=== PATIENT | female | born 1950 | race Caucasian/White ===

== ENCOUNTER 2020-07-31 10:03 | Inpatient (IN) ==
[2020-07-31] MEDS ORDERED: IOPAMIDOL 100 ML BOTTLE IV ONE (10:04)
[2020-07-31] MEDS ORDERED: morphine 2 MG/ML VIAL IV ONE ×4 (10:14→13:23)
[2020-07-31] MEDS ORDERED: ONDANSETRON 4 MG/2 ML VIAL IV ONE (10:14)
[2020-07-31 10:41] LABS: POC Blood Urea Nitrogen 13 mg/dL (6-20); POC CO2 22 mmol/L (22-30); POC Calcium, Ionized 1.16 mmEq/L (1.16-1.32); POC Chloride 106 mEq/L (96-108); POC Creatinine 0.6 mg/dL (0.6-1.2); POC Glucose, Random 128 mg/dL (70-105); POC Hematocrit 45 % (36-48); POC Potassium 3.9 mEql/L (3.3-5.1); POC Sodium 138 mEq/L (133-145)
[2020-07-31] MEDS ORDERED: KETOROLAC 30 MG/ML VIAL IV ONE (10:48)
[2020-07-31 11:03] LABS: Basophils # (Auto) 0.03 K/mcL (0.00-0.20); Basophils % (Auto) 0.2 % (0.0-2.0); Eosinophils # (Auto) 0.01 K/mcL (0.00-0.70); Eosinophils % (Auto) 0.1 % (0.0-7.0); Hemoglobin 14.9 g/dL (12.0-15.0); Lymphocytes # (Auto) 1.09 K/mcL (1.50-4.80); Mean Cell Volume 95.4 fL (80.0-100.0); Mean Corpuscular HGB Conc 33.9 g/dL (31.0-36.0); Mean Platelet Volume 8.4 fL (7.4-10.4); Monocytes # (Auto) 1.35 K/mcL (0.10-0.90); Monocytes % (Auto) 8.6 % (1.0-12.0); Neutrophils % (Auto) 84.1 % (38.0-78.0); Platelet Count 269 K/mcL (140-440); RBC 4.61 M/mcL (4.00-5.20); Red Cell Distribution Width 13.5 % (11.5-14.5); WBC 15.7 K/mcL (4.5-11.0)
[2020-07-31 11:28] LABS: ALT/SGPT 6 U/L (<40); AST/SGOT 8 U/L (<32); Albumin 3.7 gm/dL (3.2-5.2); Albumin/Globulin Ratio 1.2 (1.0-2.3); Alkaline Phosphatase 86 U/L (39-117); Bilirubin,Total 0.6 mg/dL (0.1-1.0); Blood Urea Nitrogen 12 mg/dL (8-23); Calcium 9.2 mg/dL (8.6-10.4); Carbon Dioxide 22 mmol/L (22-30); Chloride 103 mmol/L (96-108); Globulin 3.1 gm/dL (2.2-3.7); Glomerular Filtration Rate 88; Glucose 126 mg/dL (70-105)
--- NOTE | 2020-07-31 11:49 | Emergency Department Note ---
SOB HPI General Chief Complaint: Shortness of Breath/Dyspnea Stated Complaint: right upper back pain, hemoptasis Time Seen by Provider: 07/31/20 10:13 Source: patient and EMS Mode of arrival: EMS Limitations: no limitations History of Present Illness HPI Narrative: Narrative: 69-year-old female presents with cough, right-sided chest pain, right-sided flank pain, and shortness of breath. Onset on , about 3 days ago. She woke up with it and is progressively gotten worse. States she is waited all this time because she is had pleurisy in the past and at first she thought it was just that. States it is even extremely tender to touch. Her pain is 10 out of 10 and she cannot get comfortable. Is now di aphoretic. Started coughing up blood this morning. Is bright red in phlegm. Has never had hemoptysis previously. Denies fever or chills. Other than a cough no other cold symptoms. No ill contacts. No nasal congestion or ear pain. No sore throat. No nausea, vomiting, or diarrhea. No abdominal pain. No dysuria or frequency. She arrives via [facility] ambulance Related Data Home Medications Medication Instructions Recorded Confirmed No Known Home Meds 07/31/20 07/31/20 Allergies Allergy/AdvReac Type Severity Reaction Status Date / Time hydrocodone Allergy Unknown Unknown Verified 07/31/20 10:08 hydromorphone [From Dilaudid] Allergy Unknown Nausea Verified 07/31/20 10:08 tramadol Allergy Unknown Sweating, Verified 07/31/20 10:08 Vomiting, Headache atorvastatin AdvReac Unknown Gas/Diarrhe Verified 07/31/20 10:08 a Review of Systems ROS ROS Narrative: Narrative: All systems ED: reviewed and negative except as stated. [facility] Narrative Patient History Narrative: Narrative: Medical/Surgical/Family History All Active Problems Bilateral pulmonary embolism (Acute) Pneumonia (Acute) Maxillary sinusitis (Acute) Shoulder pain, left (Chronic) Spasm of esophagus (Chronic) Migraines (Chronic) Kidney stones (Chronic) Gallbladder problem (Chronic) History of appendectomy (Chronic) History of cholecystectomy (Chronic) History of kidney stones (Chronic) History of hysterectomy (Chronic) Medical History Gallbladder problem (Chronic) Gallbladder removed Kidney stones (Chronic) Surgery - 1 got "stuck" Migraines (Chronic) Occasionally - 3 or 4 times/year Shoulder pain, left (Chronic) January, Spasm of esophagus (Chronic) 2012 Surgical History History of appendectomy (Chronic) 2010 History of cholecystectomy (Chronic) 2010 History of colonoscopy (Acute 10/07/15) History of hysterectomy (Chronic) fibroid tumors 2003 History of kidney stones (Chronic) 2009 Family History Unknown No pertinent family history Social History Smoking Status: Current every day smoker Alcohol Intake Frequency: a few times a week Substance Use: does not use Exam Narrative Narrative: Narrative: General Limitations: no limitations General appearance: Present alert Head Head: Present atraumatic and normocephalic Eye Eye: Present normal appearance; Absent conjunctival injection ENT ENT: Present normal exam, normal oropharynx, mucous membranes moist, TM's normal bilaterally and normal external ear exam Neck Neck: Present normal inspection and trachea midline; Absent lymphadenopathy Chest Chest: Present normal inspection and other (tender t/o mid right chest wall to even light palpation. no rash or lesions); Absent symmetric chest wall rise and tenderness Respiratory Respiratory: Present normal lung sounds bilaterally and decreased breath sounds (mildy bases bilat); Absent respiratory distress, rales/crackles, wheezes, stridor and accessory muscle use Cardiovascular Cardiovascular: Present regular rate; Absent normal heart sounds Adbominal Abdominal: Present soft; Absent distention, tenderness, guarding, rebound and rigidity Back Back: Present CVA tenderness (R); Absent CVA tenderness (L) Neurological Neurological: Present alert and oriented X3 Psychiatric Psychiatric: Present normal affect and normal mood Skin Skin: Present warm (WNL), dry, intact and normal color; Absent rash Course Vital Signs Vital signs: Vital Signs Temperature 96.6 F L 07/31/20 10:05 Pulse Rate 81 07/31/20 10:05 Respiratory Rate 29 H 07/31/20 10:05 Blood Pressure 172/78 07/31/20 10:05 Pulse Oximetry (%) 95 07/31/20 10:05 Temperature 96.6 F L 07/31/20 10:05 Pulse Rate 74 07/31/20 13:13 Respiratory Rate 20 07/31/20 13:13 Blood Pressure 157/97 07/31/20 13:13 Pulse Oximetry (%) 94 07/31/20 13:13 MDM MDM Narrative Medical decision making narrative: Narrative: At 1300 I did speak to the hospitalist, Dr. Hitchcock. He suggested that we treat her outpatient and go ahead and treat her for pneumonia so I did order some azithromycin. We also started her on some Eliquis. However in the last half hour nursing staff just notified me that her sats are dropping to 88% on room air and she is continuing to cough up blood. She is still having 10 out of 10 pain and we are having a hard time getting her pain under control. At 1350 I did speak with hospitalist again who agrees to accept this patient. Lab Data Lab results reviewed: Yes I reviewed the patient's lab results. Result diagrams: 07/31/20 10:28 07/31/20 10:28 Labs: Lab Results 07/31/20 07/31/20 07/31/20 Range/Units 10:28 10:28 10:28 WBC 15.7 H (4.5-11.0) K/mcL RBC 4.61 (4.00-5.20) M/mcL Hgb 14.9 (12.0-15.0) g/dL Hct 44.0 (36.0-48.0) % POC Hct 45 (36-48) % MCV 95.4 (80.0-100.0) fL MCH 32.3 (26.0-34.0) pg MCHC 33.9 (31.0-36.0) g/dL RDW 13.5 (11.5-14.5) % Plt Count 269 (140-440) K/mcL MPV 8.4 (7.4-10.4) fL Neut % (Auto) 84.1 H (38.0-78.0) % Lymph % (Auto) 7.0 L (15.0-49.0) % [place] % (Auto) 8.6 (1.0-12.0) % Eos % (Auto) 0.1 (0.0-7.0) % Baso % (Auto) 0.2 (0.0-2.0) % Lymph # (Auto) 1.09 L (1.50-4.80) K/mcL [place] # (Auto) 1.35 H (0.10-0.90) K/mcL Eos # (Auto) 0.01 (0.00-0.70) K/mcL Baso # (Auto) 0.03 (0.00-0.20) K/mcL Absolute Neutrophils 13.18 H (1.80-8.00) K/mcL D-Dimer 2.06 H (0.27-0.50) ug/mL VBG Lactic Acid (0.5-2.0) mmol/L POC Sodium 138 (133-145) mEq/L Sodium 139 (133-145) mmol/L POC Potassium 3.9 (3.3-5.1) mEql/L Potassium 4.0 (3.3-5.1) mmol/L POC Chloride 106 (96-108) mEq/L Chloride 103 (96-108) mmol/L Carbon Dioxide 22 (22-30) mmol/L POC Total CO2 22 (22-30) mmol/L Anion Gap 14.0 (8.0-16.0) POC BUN 13 (6-20) mg/dL BUN 12 (8-23) mg/dL Creatinine 0.7 (0.6-1.1) mg/dL POC Creatinine 0.6 (0.6-1.2) mg/dL GFR Calculation 88 Glucose 126 H (70-105) mg/dL POC Glucose 128 H (70-105) mg/dL Calcium 9.2 (8.6-10.4) mg/dL POC WB Ioniz Calcium 1.16 (1.16-1.32) mmEq/L Total Bilirubin 0.6 (0.1-1.0) mg/dL AST 8 (<32) U/L ALT 6 (<40) U/L Alkaline Phosphatase 86 (39-117) U/L Troponin T (<0.03) ng/mL Total Protein 6.8 (5.9-8.4) gm/dL Albumin 3.7 (3.2-5.2) gm/dL Globulin 3.1 (2.2-3.7) gm/dL Albumin/Globulin Ratio 1.2 (1.0-2.3) 07/31/20 07/31/20 Range/Units 10:28 10:28 WBC (4.5-11.0) K/mcL RBC (4.00-5.20) M/mcL Hgb (12.0-15.0) g/dL Hct (36.0-48.0) % POC Hct (36-48) % MCV (80.0-100.0) fL MCH (26.0-34.0) pg MCHC (31.0-36.0) g/dL RDW (11.5-14.5) % Plt Count (140-440) K/mcL MPV (7.4-10.4) fL Neut % (Auto) (38.0-78.0) % Lymph % (Auto) (15.0-49.0) % [place] % (Auto) (1.0-12.0) % Eos % (Auto) (0.0-7.0) % Baso % (Auto) (0.0-2.0) % Lymph # (Auto) (1.50-4.80) K/mcL [place] # (Auto) (0.10-0.90) K/mcL Eos # (Auto) (0.00-0.70) K/mcL Baso # (Auto) (0.00-0.20) K/mcL Absolute Neutrophils (1.80-8.00) K/mcL D-Dimer (0.27-0.50) ug/mL VBG Lactic Acid 0.8 (0.5-2.0) mmol/L POC Sodium (133-145) mEq/L Sodium (133-145) mmol/L POC Potassium (3.3-5.1) mEql/L Potassium (3.3-5.1) mmol/L POC Chloride (96-108) mEq/L Chloride (96-108) mmol/L Carbon Dioxide (22-30) mmol/L POC Total CO2 (22-30) mmol/L Anion Gap (8.0-16.0) POC BUN (6-20) mg/dL BUN (8-23) mg/dL Creatinine (0.6-1.1) mg/dL POC Creatinine (0.6-1.2) mg/dL GFR Calculation Glucose (70-105) mg/dL POC Glucose (70-105) mg/dL Calcium (8.6-10.4) mg/dL POC WB Ioniz Calcium (1.16-1.32) mmEq/L Total Bilirubin (0.1-1.0) mg/dL AST (<32) U/L ALT (<40) U/L Alkaline Phosphatase (39-117) U/L Troponin T < 0.01 (<0.03) ng/mL Total Protein (5.9-8.4) gm/dL Albumin (3.2-5.2) gm/dL Globulin (2.2-3.7) gm/dL Albumin/Globulin Ratio (1.0-2.3) Radiology Data Radiology results reviewed: Yes I reviewed the patient's radiology results. Discharge Plan Patient/Caregiver Discharge Instructions Pt seen by [facility]/PA only: Yes Clinical Impression: Bilateral pulmonary embolism, Pneumonia Patient Disposition: Xfer As Outpt/Obs ([facility]) Condition: Serious Follow up with: Wayne Shah MD [Primary Care Provider] - Prescriptions: No Action No Known Home Meds RF: 0
[2020-07-31] MEDS ORDERED: AZITHROMYCIN 500 MG in DEXTROSE 5% IN WATER 250 ML IV ONE (13:23)
[2020-07-31] MEDS ORDERED: APIXABAN 5 MG TABLET PO ONE (13:23)
[2020-07-31 13:33] LABS: INR 0.9 (0.9-1.1); Prothrombin Time 13.1 sec (11.9-14.5)
--- NOTE | 2020-07-31 14:18 | Internal Med History&Physical ---
HPI History of Present Illness Patient information: Note initiated : 07/31/20 at 2:11 pm Service Date, if different from initiated Date: [] Patient: Ana Luisa San a 69 y/o F admitted on for right upper back pain, hemoptasis. Chief Complaint: [] History of present illness: Ms. San is a 69 year old F pResents the ED with chest pain on the right and shortness of breath. Patient states that she had significant pain right lower chest side and back/flank. Chest pain is worse with deep breath and coughing. She is had pleurisy in the past and thought was that. She thinks the symptoms started probably Saturday or Saturday but were severe enough to be really bothered her on . She felt like she had a cough but could not cough anything up. She denies fevers or chills. Her chest pain and shortness of breath continued to the point where it is so severe that she felt she needed to come into the ED. In the ED her oxygen saturation was originally fine on room air but eventually she started dipping down to 88 on room air. CTA of her chest showed bilateral PEs as well as a right lower lobe infiltrate. She denies any aspiration. She believes she had Covid infection a year ago in July before it was known. She works in [employer] and sits all day. She smokes a pack per day. She has started coughing up blood today. Review of Systems: Pertinent positives as above. Denies headache/fever/chills/nausea/vomiting/abd ominal pain/diarrhea. Remaining 10 point review of system reviewed negative PFSH PFSH All Active Problems Bilateral pulmonary embolism (Acute) Pneumonia (Acute) Maxillary sinusitis (Acute) Shoulder pain, left (Chronic) Spasm of esophagus (Chronic) Migraines (Chronic) Kidney stones (Chronic) Gallbladder problem (Chronic) History of appendectomy (Chronic) History of cholecystectomy (Chronic) History of kidney stones (Chronic) History of hysterectomy (Chronic) Medical History Gallbladder problem (Chronic) Gallbladder removed Kidney stones (Chronic) Surgery - 1 got "stuck" Migraines (Chronic) Occasionally - 3 or 4 times/year Shoulder pain, left (Chronic) January, Spasm of esophagus (Chronic) 2012 Surgical History History of appendectomy (Chronic) 2010 History of cholecystectomy (Chronic) 2010 History of colonoscopy (Acute 10/07/15) History of hysterectomy (Chronic) fibroid tumors 2003 History of kidney stones (Chronic) 2009 Family History Unknown No pertinent family history Social History (Updated 06/29/19 @ 09:15 by Octavio Hook PA-C) marital status: smoking status: Current every day smoker alcohol intake frequency: a few times a week substance use type: does not use MEDS/ALLERGIES Home Medications and Allergies Home Medications Medication Instructions Recorded Confirmed Type No Known Home Meds 07/31/20 07/31/20 History Allergies Allergy/AdvReac Type Severity Reaction Status Date / Time hydrocodone Allergy Unknown Unknown Verified 07/31/20 10:08 atorvastatin AdvReac Mild Gas/Diarrhe Verified 07/31/20 14:16 a hydromorphone [From Dilaudid] AdvReac Mild Nausea Verified 07/31/20 14:16 tramadol AdvReac Mild Sweating, Verified 07/31/20 14:16 Vomiting, Headache EXAM Constitutional Vitals: Temp Pulse Resp BP Pulse Ox 96.6 F L 73 18 152/79 95 07/31/20 10:05 07/31/20 14:03 07/31/20 14:03 07/31/20 14:03 07/31/20 14:03 Exam: General: Alert, Awake, No acute Distress Eyes/N/T: EOMI, PERRL, dry MM Head/Neck: neck supple, normocephalic atraumatic CV: RRR, No murmurs, normal s1/s2 Pulm: Rhonchi b/l bases, no wheezing Abd: soft, nontender, +BS x4 Ext: no clubbing/cyanosis/edema Neuro: Alert, no focal deficits, moves all extremities, CN 2-12 grossly intact, symmetrical strength b/l upper/lower, sensations intact b/l upper/lower Skin: warm/dry DATA Data Completed and Pending Labs: Labs from last 24 hours 07/31/20 07/31/20 07/31/20 13:22 10:28 10:28 WBC RBC Hgb Hct POC Hct MCV MCH MCHC RDW Plt Count MPV Neut % (Auto) Lymph % (Auto) [place] % (Auto) Eos % (Auto) Baso % (Auto) Lymph # (Auto) [place] # (Auto) Eos # (Auto) Baso # (Auto) Absolute Neutrophils PT 13.1 INR 0.9 D-Dimer VBG Lactic Acid POC Sodium Sodium POC Potassium Potassium POC Chloride Chloride Carbon Dioxide POC Total CO2 Anion Gap POC BUN BUN Creatinine POC Creatinine GFR Calculation Glucose POC Glucose Calcium POC WB Ioniz Calcium Total Bilirubin AST ALT Alkaline Phosphatase Troponin T Total Protein Albumin Globulin Albumin/Globulin Ratio Procalcitonin Pending Urine Color Pending Urine Appearance Pending Urine pH Pending Ur Specific [place] Pending Urine Protein Pending Urine Glucose (UA) Pending Urine Ketones Pending Urine Occult Blood Pending Urine Nitrate Pending Urine Bilirubin Pending Urine Urobilinogen Pending Ur Leukocyte Esterase Pending 07/31/20 07/31/20 07/31/20 10:28 10:28 10:28 WBC RBC Hgb Hct POC Hct 45 MCV MCH MCHC RDW Plt Count MPV Neut % (Auto) Lymph % (Auto) [place] % (Auto) Eos % (Auto) Baso % (Auto) Lymph # (Auto) [place] # (Auto) Eos # (Auto) Baso # (Auto) Absolute Neutrophils PT INR D-Dimer VBG Lactic Acid 0.8 POC Sodium 138 Sodium 139 POC Potassium 3.9 Potassium 4.0 POC Chloride 106 Chloride 103 Carbon Dioxide 22 POC Total CO2 22 Anion Gap 14.0 POC BUN 13 BUN 12 Creatinine 0.7 POC Creatinine 0.6 GFR Calculation 88 Glucose 126 H POC Glucose 128 H Calcium 9.2 POC WB Ioniz Calcium 1.16 Total Bilirubin 0.6 AST 8 ALT 6 Alkaline Phosphatase 86 Troponin T < 0.01 Total Protein 6.8 Albumin 3.7 Globulin 3.1 Albumin/Globulin Ratio 1.2 Procalcitonin Urine Color Urine Appearance Urine pH Ur Specific [place] Urine Protein Urine Glucose (UA) Urine Ketones Urine Occult Blood Urine Nitrate Urine Bilirubin Urine Urobilinogen Ur Leukocyte Esterase 07/31/20 07/31/20 10:28 10:28 WBC 15.7 H RBC 4.61 Hgb 14.9 Hct 44.0 POC Hct MCV 95.4 MCH 32.3 MCHC 33.9 RDW 13.5 Plt Count 269 MPV 8.4 Neut % (Auto) 84.1 H Lymph % (Auto) 7.0 L [place] % (Auto) 8.6 Eos % (Auto) 0.1 Baso % (Auto) 0.2 Lymph # (Auto) 1.09 L [place] # (Auto) 1.35 H Eos # (Auto) 0.01 Baso # (Auto) 0.03 Absolute Neutrophils 13.18 H PT INR D-Dimer 2.06 H VBG Lactic Acid POC Sodium Sodium POC Potassium Potassium POC Chloride Chloride Carbon Dioxide POC Total CO2 Anion Gap POC BUN BUN Creatinine POC Creatinine GFR Calculation Glucose POC Glucose Calcium POC WB Ioniz Calcium Total Bilirubin AST ALT Alkaline Phosphatase Troponin T Total Protein Albumin Globulin Albumin/Globulin Ratio Procalcitonin Urine Color Urine Appearance Urine pH Ur Specific [place] Urine Protein Urine Glucose (UA) Urine Ketones Urine Occult Blood Urine Nitrate Urine Bilirubin Urine Urobilinogen Ur Leukocyte Esterase A/P Narrative A/P Narrative: A: *PE b/l: No heart strain noted on CT imaging, vital signs stable -pleuritc chest pain and mild hemoptysis *PNA (RLL): *Acute hypoxic respiratory failure: P: -heparin gtt for 24hrs then to likely eliquis -Molly/any SC pending -O2 supp, wean as able -pulm toilet -ppx: heparin full code Time Spent With Patient Time: Total time spent is greater than 50% in coordination of care (as documented) at patient's floor/unit and/or counseling patient:
[2020-07-31 14:31] LABS: Appearance,Urine CLEAR (Clear); Bilirubin,Urine NEG (Negative); Color,Urine YELLOW; Culture Indicated,Urine No; Glucose,Urine (UA) NEG (Negative); Ketones,Urine NEG (Negative); Leukocyte Esterase,Urine NEG /ug (Negative); Nitrate,Urine NEG (Negative); Protein,Urine NEG (Negative); Specific Gravity,Urine 1.005 (1.000-1.035); Urine Blood NEG (Negative)
--- NOTE | 2020-07-31 14:45 | XRay Report ---
CLINICAL INFORMATION: dyspnea and right chest pain COMPARISON: 09/21/2015 FINDINGS: Heart size, mediastinum and pulmonary vessels are normal. Moderate mixed interstitial/alveolar infiltrate has developed in the right base with a small infiltrate in the left base. Mild diffuse interstitial fibrosis throughout both lungs was also seen on previous exam. IMPRESSION: Moderate vague right basilar infiltrate and small left basilar infiltrate. Consider infection or aspiration Mild diffuse interstitial fibrosis Interpreted and Authenticated by: Bandar Levine 07/31/20
[2020-07-31] MEDS ORDERED: ACETAMINOPHEN 325 MG TABLET PO PRN (14:52)
[2020-07-31] MEDS ORDERED: 0.9 % SODIUM CHLORIDE 1,000 ML IV SCH (14:52)
[2020-07-31] MEDS ORDERED: SENNOSIDES 1 TABLET PO PRN (14:52)
[2020-07-31] MEDS ORDERED: cefTRIAXone 2 GM in DEXTROSE 5% IN WATER 50 ML IV SCH (14:52)
[2020-07-31] MEDS ORDERED: AZITHROMYCIN 500 MG in DEXTROSE 5% IN WATER 250 ML IV SCH (14:52)
[2020-07-31] MEDS ORDERED: POTASSIUM CHLORIDE 20 MEQ TABLET PO PRN ×2 (14:52)
[2020-07-31] MEDS ORDERED: ONDANSETRON 4 MG/2 ML VIAL IV PRN (14:52)
[2020-07-31] MEDS ORDERED: POTASSIUM CHLORIDE 40 MEQ in DEXTROSE 5% IN WATER 500 ML IV PRN (14:52)
[2020-07-31] MEDS ORDERED: IPRATROPIUM/ALBUTEROL 3 ML AMPUL.NEB NEB PRN (14:52)
[2020-07-31] MEDS ORDERED: MAGNESIUM SULFATE 2 GM/50 ML BAG IV PRN (14:52)
[2020-07-31] MEDS ORDERED: KETOROLAC 15 MG/ML VIAL IV PRN (14:52)
--- NOTE | 2020-07-31 15:06 | Cat Scan Report ---
CLINICAL INFORMATION: Dyspnea COMPARISON: Chest CT: 06/19/2016 and 10/23/2018. TECHNIQUE: 80ml of Isovue-370 were injected intravenously. Using SmartPrep to maximize pulmonary artery opacification, .625mm helical slices were obtained from the lung apices through the lung bases. Following reconstruction, 2.5 mm sagittal, coronal, and axial reformations were processed. The exam was reviewed at mediastinal, lung, and bone windows. The exam was performed using radiation dose optimization techniques including, but not limited to, automated exposure control, adjustment of the mA and/or kV according to patient size and use of iterative reconstruction technique. FINDINGS: Pulmonary parenchymal windows show moderate groundglass/alveolar infiltrate in the posterior right lower lobe - new from the previous study. A small region of consolidated infiltrate is also developed in the peripheral posterior left lower lobe. Severe underlying centrilobular emphysema features chronic bronchitis with elevated lung volumes wall thickening/dilatation of bronchi with multiple bullae - predominantly in the upper lobes. In the right lung apex, 9.4 mm nodule has increased in size from 2019. That time it was 6 mm. It was not seen on the [address] CT. Mediastinal windows show a 14 mm lymph node in the right infrahilar region and greater than eight mildly enlarged lymph nodes the inferior mediastinum including the subcarinal,, precarinal and AP window which range up to 18 mm. Slight increase in size and number from previous CT. A small nonocclusive saddle embolus at the left lower lobe pulmonary artery bifurcation and occlusive emboli in the posterior and lateral basilar segmental right lower lobe pulmonary arteries are present. These may be chronic. The central pulmonary arteries are normal in caliber: the main pulmonary diameter 2.5 cm - no evidence of pulmonary hypertension. Thoracic aorta is normal diameter with diffuse intimal thickening. The heart is mildly enlarged with scattered fibrofatty calcific plaque in the coronary arteries. The esophagus is grossly normal. Thyroid is unremarkable. Bones and soft tissues the chest wall show no abnormality. Images through the superior abdomen show mild adrenal hyperplasia. The visualized superior kidneys, spleen, pancreas and liver are unremarkable IMPRESSION: 1. New moderate mixed groundglass/ alveolar infiltrate in the posterior right lower lobe. Small bandlike infiltrate posterior left lower lobe. Consider aspiration or infection. 2. Severe centrilobular emphysema - slight progression. 3. Nonocclusive saddle emboli at the bifurcation of the left lower lobe pulmonary artery. Occlusive emboli in the posterior and lateral basilar segmental right lower lobe pulmonary arteries. These may be chronic. 4. 9 mm nodule in the right lung apex increasing in size. Suggest six month follow-up chest CT for reevaluation. 5. Adenopathy in the right infrahilar region and lower mediastinum progressing since the previous exam. They likely represent benign reactive lymph nodes related to lung infection. 6. Mild bilateral adrenal hyperplasia - stable Interpreted and Authenticated by: Bandar Levine 07/31/20
[2020-07-31] MEDS: cefTRIAXone 2 GM in DEXTROSE 5% IN WATER 50 ML IV SCH (15:08)
--- NOTE | 2020-07-31 15:21 | Cat Scan Report ---
CLINICAL INFORMATION: Abdominal pain COMPARISON: 08/22/[address] TECHNIQUE: Following enteric contrast, 80 cc of Isovue-370 were injected intravenously, and 60 seconds later, 0.625 mm helical slices were obtained from the mid heart through the subtrochanteric regions. Following reconstruction, 2.5 mm sagittal, coronal and axial reformatted images were processed and reviewed at bone, lung and soft tissue windows. Five minutes later, 0.625 mm helical slices were obtained from the mid heart through the kidneys and viewed at soft tissue windows.The exam was performed using radiation dose optimization techniques including, but not limited to, automated exposure control, adjustment of the mA and/or kV according to patient size and use of iterative reconstruction technique. FINDINGS: Lung bases show moderate groundglass /alveolar infiltrate in the posterior right lower lobe with occlusive emboli in the posterior lateral basilar segmental arteries and small right pleural effusion. A small bandlike infiltrate is seen in the posterior left lower lobe. The heart is mildly enlarged, but unchanged. Abdominal images show minimal fatty change within the liver, but no focal hepatic lesion. The gallbladder is surgically absent. The intrahepatic common hepatic and common bile ducts have increased in caliber: CBD now span 11 mm. There is smooth tapering near the ampullary region without evidence of stone or mass. Findings most compatible with mild post cholecystomy papillary stenosis. The pancreatic duct mildly dilated - 3 mm. Pancreas is otherwise normal. Scattered tiny simple cysts both kidneys are unchanged. Both adrenal glands and spleen are normal. Extremely heavy fibrofatty and calcific plaque have progressed in the abdominal aorta which remains diameter 2.2 cm. There is a 50% stenosis of the infrarenal abdominal aorta due to eccentric fibrofatty plaque and a tiny focal dissection. Pelvic images show hysterectomy and oophorectomy changes. The urinary bladder is normal. The stomach, small bowel and large bowel grossly normal. Appendectomy changes noted. Bone windows show no osseous abnormality. IMPRESSION: 1. Mild dilatation of the common bile and pancreatic ducts - new from comparison CT nine years ago. Findings compatible post cholecystomy papillary stenosis. This may be clinically insignificant but please correlate with obstructive LFT pattern and elevated bilirubin. 2. Heavy fibrofatty calcific plaque in the abdominal aorta with a 50% stenosis infrarenal abdominal aorta. The patient will eventually be at risk for Leriche syndrome. 3. Scattered small simple cysts both kidneys - stable. Interpreted and Authenticated by: Bandar Levine 07/31/20
[2020-07-31] MEDS: morphine 4 MG/ML VIAL IV PRN ×2 (18:48→23:59)
[2020-07-31] MEDS: DOCUSATE SODIUM 100 MG CAPSULE PO SCH (20:53)
[2020-07-31] MEDS: HEPARIN SOD,PORK IN 0.45% NACL 25,000 UNIT in PREMIX 1 BAG IV SCH (21:59)
[2020-07-31] MEDS: 0.9 % SODIUM CHLORIDE 10 ML SYRINGE IV SCH (22:07)
[2020-08-01] MEDS: HYDROcodone/APAP 5/325MG TABLET PO PRN ×4 (01:41→19:58)
[2020-08-01] MEDS: 0.9 % SODIUM CHLORIDE 10 ML SYRINGE IV SCH ×3 (05:10→22:35)
[2020-08-01] MEDS: morphine 4 MG/ML VIAL IV PRN (05:10)
[2020-08-01 06:02] LABS: Basophils # (Auto) 0.05 K/mcL (0.00-0.20); Basophils % (Auto) 0.4 % (0.0-2.0); Eosinophils # (Auto) 0.07 K/mcL (0.00-0.70); Eosinophils % (Auto) 0.5 % (0.0-7.0); Hematocrit 39.4 % (36.0-48.0); Hemoglobin 12.9 g/dL (12.0-15.0); Lymphocytes # (Auto) 2.23 K/mcL (1.50-4.80); Lymphocytes % (Auto) 16.1 % (15.0-49.0); Mean Cell Volume 98.3 fL (80.0-100.0); Mean Corpuscular HGB Conc 32.7 g/dL (31.0-36.0); Mean Platelet Volume 8.8 fL (7.4-10.4); Monocytes # (Auto) 1.15 K/mcL (0.10-0.90); Monocytes % (Auto) 8.3 % (1.0-12.0); Neutrophils % (Auto) 74.7 % (38.0-78.0); Platelet Count 247 K/mcL (140-440); RBC 4.01 M/mcL (4.00-5.20); Red Cell Distribution Width 13.4 % (11.5-14.5); WBC 13.8 K/mcL (4.5-11.0)
[2020-08-01 06:13] LABS: ALT/SGPT 37 U/L (<40); AST/SGOT 25 U/L (<32); Albumin 2.7 gm/dL (3.2-5.2); Albumin/Globulin Ratio 0.8 (1.0-2.3); Alkaline Phosphatase 118 U/L (39-117); Bilirubin,Direct < 0.2 mg/dL (<0.3); Bilirubin,Total 0.3 mg/dL (0.1-1.0); Blood Urea Nitrogen 14 mg/dL (8-23); Calcium 8.5 mg/dL (8.6-10.4); Carbon Dioxide 24 mmol/L (22-30); Chloride 106 mmol/L (96-108); Globulin 3.2 gm/dL (2.2-3.7); Glomerular Filtration Rate 88; Glucose 92 mg/dL (70-105); Lactate Dehydrogenase 174 U/L (135-225); Triglycerides 96 mg/dL (<150); Uric Acid 2.7 mg/dL (2.5-8.0)
--- NOTE | 2020-08-01 08:06 | Internal Med Progress Note ---
SUBJECTIVE Subjective Patient information: Note initiated : 08/01/20 at 8:02 am Service Date, if different from initiated Date: [] Patient: Ana Luisa San 69 y/o F admitted on 07/31/20 for right upper back pain, hemoptasis. Chief Complaint: [] Interval history: History of present illness: Ms. San is a 69 year old F pResents the ED with chest pain on the right and shortness of breath. Patient states that she had significant pain right lower chest side and back/flank. Chest pain is worse with deep breath and coughing. She is had pleurisy in the past and thought was that. She thinks the symptoms started probably Saturday or Saturday but were severe enough to be really bothered her on . She felt like she had a cough but could not cough anything up. She denies fevers or chills. Her chest pain and shortness of breath continued to the point where it is so severe that she felt she needed to come into the ED. In the ED her oxygen saturation was originally fine on room air but eventually she started dipping down to 88 on room air. CTA of her chest showed bilateral PEs as well as a right lower lobe infiltrate. She denies any aspiration. She believes she had Covid infection a year ago in July before it was known. She works in [employer] and sits all day. She smokes a pack per day. She has started coughing up blood today. 08/01 Right-sided pleuritic chest pain mildly improved. She is on half liter of nasal cannula oxygen. On heparin drip. Occasional cough. No other pains or complaints. Review of Systems: denies headache/fever/chills/nausea/vomiting/abdominal pain/diarrhea. Otherwise see above. Constitutional Vitals: Vital Signs Temp Pulse Resp BP Pulse Ox 98.2 F 64 17 120/68 95 08/01/20 04:09 08/01/20 04:09 08/01/20 04:09 08/01/20 04:01 08/01/20 07:34 Period Temp Pulse Resp BP Sys/Lewis Pulse Ox Last 24 Hr 96.6 F-98.2 F 64-82 15-29 120-177/61-97 88-96 Intake and Output 07/31/20 08/01/20 08/01/20 21:59 05:59 13:59 Intake Total 660 1480 235 Output Total 0 350 Balance 660 1480 -115 Weight 67.313 kg Intake & Output: Intake & Output 07/31/20 08/01/20 08/01/20 21:59 05:59 13:59 Intake Total 660 1480 235 Output Total 0 350 Balance 660 1480 -115 Weight 67.313 kg Intake: IV 300 1000 235 Sodium Chloride 0.9% 1,000 ml @ 1000 150 mls/hr IV .Q6H40M [facility] Rx#: [id number] Zithromax 500 mg In Dextrose 5% 250 in Water 250 ml @ 250 mls/hr IV ONCE ONE Rx#:[id number] Heparin/0.45%Ns 25,000 Unit In 235 Premix 1 Bag @ 18 UNIT/KG/HR 24 .168 mls/hr IV .[id number] [facility] Rx# :[id number] Rocephin 2 gm In Dextrose 5% in 50 Water 50 ml @ 100 mls/hr IV Q24H [facility] Rx#:[id number] Oral 360 480 Output: Void Amount 0 350 Other: # Voids 1 Exam: General: Alert, Awake, No acute Distress Eyes/N/T: EOMI, Head/Neck: neck supple, CV: RRR, No murmurs, Pulm: mild Rhonchi b/l bases, no wheezing Abd: soft, nontender, +BS x4 Ext: no clubbing/cyanosis/edema Neuro: Alert, no focal deficits, moves all extremities, Skin: warm/dry OBJ DATA Labs CBC & Chem 7: 08/01/20 05:04 08/01/20 05:04 Labs: Abnormal Lab Results 08/01/20 08/01/20 08/01/20 05:04 05:04 05:04 WBC 13.8 H Neut % (Auto) Lymph % (Auto) Lymph # (Auto) [place] # (Auto) 1.15 H Absolute Neutrophils 10.33 H APTT 107.9 H D-Dimer Anion Gap 7.0 L Glucose POC Glucose Calcium 8.5 L GGT 72 H Alkaline Phosphatase 118 H Albumin 2.7 L Albumin/Globulin Ratio 0.8 L Procalcitonin Urine Urobilinogen 07/31/20 07/31/20 07/31/20 20:00 13:22 10:28 WBC Neut % (Auto) Lymph % (Auto) Lymph # (Auto) [place] # (Auto) Absolute Neutrophils APTT 43.6 H 37.1 H D-Dimer Anion Gap Glucose POC Glucose Calcium GGT Alkaline Phosphatase Albumin Albumin/Globulin Ratio Procalcitonin Urine Urobilinogen 2.0 A 07/31/20 07/31/20 07/31/20 10:28 10:28 10:28 WBC Neut % (Auto) Lymph % (Auto) Lymph # (Auto) [place] # (Auto) Absolute Neutrophils APTT D-Dimer 2.06 H Anion Gap Glucose 126 H POC Glucose 128 H Calcium GGT Alkaline Phosphatase Albumin Albumin/Globulin Ratio Procalcitonin 0.11 H Urine Urobilinogen 07/31/20 10:28 WBC 15.7 H Neut % (Auto) 84.1 H Lymph % (Auto) 7.0 L Lymph # (Auto) 1.09 L [place] # (Auto) 1.35 H Absolute Neutrophils 13.18 H APTT D-Dimer Anion Gap Glucose POC Glucose Calcium GGT Alkaline Phosphatase Albumin Albumin/Globulin Ratio Procalcitonin Urine Urobilinogen Meds: Medications Acetaminophen (Tylenol) 650 mg PO Q6HP PRN PRN Reason: PAIN/FEVER > 101 Hydrocodone Bitart/Acetaminophen ([place] 5/325mg) 1 tab PO Q4HP PRN PRN Reason: PAIN LEVEL 3-6 Last Admin: 08/01/20 01:41 Dose: 1 tab Documented by: Albuterol/Ipratropium (Duoneb) 3 ml NEB Q4HP PRN PRN Reason: Shortness Of Breath Docusate Sodium (Colace) 100 mg PO BID [facility] Last Admin: 07/31/20 20:53 Dose: Not Given Documented by: Potassium Chloride 40 meq/ (Dextrose) 520 mls @ 130 mls/hr IV UD PRN PRN Reason: Potassium < 3 Magnesium Sulfate (Magnesium Sulfate) 2 gm in 50 mls @ 50 mls/hr IV UD PRN PRN Reason: Magnesium </= 1.6 Heparin Sodium/Sodium Chloride (25,000 unit/ Premix) 500 mls @ 24.168 mls/hr IV .[id number] [facility]; Protocol Last Titration: 08/01/20 07:43 Dose: 0 unit/kg/hr, 0 mls/hr Documented by: Azithromycin 500 mg/ Dextrose 250 mls @ 250 mls/hr IV Q24H [facility]; Protocol Stop: 08/03/20 10:59 Ceftriaxone Sodium 2 gm/ (Dextrose) 50 mls @ 100 mls/hr IV Q24H [facility]; Protocol Last Infusion: 07/31/20 15:38 Dose: Infused Documented by: Ketorolac Tromethamine (Toradol) 15 mg IV Q6HP PRN PRN Reason: Per Pain Protocol Stop: 08/02/20 14:22 Lidocaine (Lidoderm) 1 patch TOPICAL DAILY@1000 [place] Morphine Sulfate (Morphine) 0 mg IV Q3HP PRN PRN Reason: Pain Last Admin: 08/01/20 05:10 Dose: 2 mg Documented by: Ondansetron HCl (Zofran) 4 mg IV Q4HP PRN PRN Reason: Nausea And Vomiting Potassium Chloride (Kdur) 40 meq PO UD PRN PRN Reason: Potssium is 3-3.5 Potassium Chloride (Kdur) 40 meq PO UD PRN PRN Reason: Potassium < 3 Senna (Senokot) 2 tab PO DAILYP PRN PRN Reason: Constipation Sodium Chloride (Saline Flush) 10 ml IV Q8 [place] Last Admin: 08/01/20 05:10 Dose: 10 ml Documented by: A/P Narrative A/P Narrative: A: *PE b/l: No heart strain noted on CT imaging, vital signs stable -pleuritic chest pain and mild hemoptysis *PNA (RLL): *Acute hypoxic respiratory failure: 2/2 above -down to 0.5L NC *COPD by history and imaging: severe centrilobular emphysema on CT *Incidental 9mm nodule right lung apex: f/u CT 6-months P: -heparin gtt, start eliquis tonight -Rocephin/azithro, SC pending -O2 supp, wean as able -pulm toilet - f/u with pulm for PFT's. -f/u CT 6-months for incidental lung nodule -ppx: heparin full code Time Spent With Patient Time: Total time spent is greater than 50% in coordination of care (as documented) at patient's floor/unit and/or counseling patient: QUALITY VTE Deep Vein Thrombosis/Pulmonary Embolism Present on Admission: Yes
[2020-08-01] MEDS: cefTRIAXone 2 GM in DEXTROSE 5% IN WATER 50 ML IV SCH (08:25)
[2020-08-01] MEDS: DOCUSATE SODIUM 100 MG CAPSULE PO SCH ×2 (08:26→19:45)
[2020-08-01] MEDS: AZITHROMYCIN 500 MG in DEXTROSE 5% IN WATER 250 ML IV SCH (10:07)
[2020-08-01] MEDS: LIDOCAINE PATCH TOPICAL SCH (10:21)
[2020-08-01] MEDS: FLUTICASONE/SALMETEROL 250/50 INHALER #14 INH SCH ×2 (10:22→22:34)
--- NOTE | 2020-08-01 10:25 | Discharge Summary ---
Discharge Provider Provider Patient information: Note initiated : 08/01/20 at 10:23 am Service Date, if different from initiated Date: [] Patient: Ana Luisa San a 69 y/o F admitted on 07/31/20 for right upper back pain, hemoptasis. Chief Complaint: [] Date of admission: 07/31/20 14:48 Discharge date: 08/02/20 Primary care physician: Wayne Shah MD Consults: 07/31/20 13:52 Consult to Physician [CONS] Stat Comment: Consulting Provider: Kwadwo Hitchcock Reason For Exam: Physician to Consult Discharge Meds Discharge Medications Home Medications apixaban [Eliquis] 10 mg PO BID #90 tab 08/01/20 [Rx Last Taken Unknown] cefdinir 300 mg PO BID #10 cap 08/01/20 [Rx Last Taken Unknown] COURSE Hospital Course Hospital course: History of present illness: Ms. San is a 69 year old F pResents the ED with chest pain on the right and shortness of breath. Patient states that she had significant pain right lower chest side and back/flank. Chest pain is worse with deep breath and coughing. She is had pleurisy in the past and thought was that. She thinks the symptoms started probably Saturday or Saturday but were severe enough to be really bothered her on . She felt like she had a cough but could not cough anything up. She denies fevers or chills. Her chest pain and shortness of breath continued to the point where it is so severe that she felt she needed to come into the ED. In the ED her oxygen saturation was originally fine on room air but eventually she started dipping down to 88 on room air. CTA of her chest showed bilateral PEs as well as a right lower lobe infiltrate. She denies any aspiration. She believes she had Covid infection a year ago in July before it was known. She works in insurance and sits all day. She smokes a pack per day. She has started coughing up blood today. 08/01 Right-sided pleuritic chest pain mildly improved. She is on half liter of nasal cannula oxygen. On heparin drip. Occasional cough. No other pains or complaints. / Doing well. On room air. Stable for discharge. A: *PE b/l: No heart strain noted on CT imaging, vital signs stable *PNA (RLL): *Acute hypoxic respiratory failure: 2/2 above *COPD by history and imaging: severe centrilobular emphysema on CT *Incidental 9mm nodule right lung apex: f/u CT 6-months Discharge diagnosis: Bilateral PE right lower lobe pneumonia acute hypoxic respite failure COPD Secondary discharge diagnosis: Incidental 9 mm nodule right lung apex Time Spent with Patient Time attestation: Total time spent providing and/or coordinating discharge services: Time spent: Greater than 30 minutes EXAM Constitutional Vitals: Temp Pulse Resp BP Pulse Ox 98.2 F 69 21 138/67 94 08/01/20 04:09 08/01/20 08:01 08/01/20 08:01 08/01/20 08:01 08/01/20 08:01 Discharge Data Data Completed and Pending Labs on day of discharge: Labs from last 24 hours 08/01/20 08/01/20 08/01/20 05:04 05:04 05:04 WBC 13.8 H RBC 4.01 Hgb 12.9 Hct 39.4 POC Hct MCV 98.3 MCH 32.2 MCHC 32.7 RDW 13.4 Plt Count 247 MPV 8.8 Neut % (Auto) 74.7 Lymph % (Auto) 16.1 [place] % (Auto) 8.3 Eos % (Auto) 0.5 Baso % (Auto) 0.4 Lymph # (Auto) 2.23 [place] # (Auto) 1.15 H Eos # (Auto) 0.07 Baso # (Auto) 0.05 Absolute Neutrophils 10.33 H PT INR APTT 107.9 H D-Dimer VBG Lactic Acid POC Sodium Sodium 137 POC Potassium Potassium 4.2 POC Chloride Chloride 106 Carbon Dioxide 24 POC Total CO2 Anion Gap 7.0 L POC BUN BUN 14 Creatinine 0.7 POC Creatinine GFR Calculation 88 Glucose 92 POC Glucose Uric Acid 2.7 Calcium 8.5 L POC WB Ioniz Calcium Phosphorus 3.0 Magnesium 2.2 Total Bilirubin 0.3 Direct Bilirubin < 0.2 GGT 72 H AST 25 ALT 37 Alkaline Phosphatase 118 H Lactate Dehydrogenase 174 Troponin T Total Protein 5.9 Albumin 2.7 L Globulin 3.2 Albumin/Globulin Ratio 0.8 L Triglycerides 96 Procalcitonin Urine Color Urine Appearance Urine pH Ur Specific [place] Urine Protein Urine Glucose (UA) Urine Ketones Urine Occult Blood Urine Nitrate Urine Bilirubin Urine Urobilinogen Ur Leukocyte Esterase Ur Culture Indicated? 07/31/20 07/31/20 07/31/20 20:00 13:22 10:28 WBC RBC Hgb Hct POC Hct MCV MCH MCHC RDW Plt Count MPV Neut % (Auto) Lymph % (Auto) [place] % (Auto) Eos % (Auto) Baso % (Auto) Lymph # (Auto) [place] # (Auto) Eos # (Auto) Baso # (Auto) Absolute Neutrophils PT INR APTT 43.6 H 37.1 H D-Dimer VBG Lactic Acid POC Sodium Sodium POC Potassium Potassium POC Chloride Chloride Carbon Dioxide POC Total CO2 Anion Gap POC BUN BUN Creatinine POC Creatinine GFR Calculation Glucose POC Glucose Uric Acid Calcium POC WB Ioniz Calcium Phosphorus Magnesium Total Bilirubin Direct Bilirubin GGT AST ALT Alkaline Phosphatase Lactate Dehydrogenase Troponin T Total Protein Albumin Globulin Albumin/Globulin Ratio Triglycerides Procalcitonin Urine Color Yellow Urine Appearance Clear Urine pH 5.0 Ur Specific [place] 1.005 Urine Protein Neg Urine Glucose (UA) Neg Urine Ketones Neg Urine Occult Blood Neg Urine Nitrate Neg Urine Bilirubin Neg Urine Urobilinogen 2.0 A Ur Leukocyte Esterase Neg Ur Culture Indicated? No 07/31/20 07/31/20 07/31/20 10:28 10:28 10:28 WBC RBC Hgb Hct POC Hct MCV MCH MCHC RDW Plt Count MPV Neut % (Auto) Lymph % (Auto) [place] % (Auto) Eos % (Auto) Baso % (Auto) Lymph # (Auto) [place] # (Auto) Eos # (Auto) Baso # (Auto) Absolute Neutrophils PT 13.1 INR 0.9 APTT D-Dimer VBG Lactic Acid POC Sodium Sodium POC Potassium Potassium POC Chloride Chloride Carbon Dioxide POC Total CO2 Anion Gap POC BUN BUN Creatinine POC Creatinine GFR Calculation Glucose POC Glucose Uric Acid Calcium POC WB Ioniz Calcium Phosphorus Magnesium Total Bilirubin Direct Bilirubin GGT AST ALT Alkaline Phosphatase Lactate Dehydrogenase Troponin T < 0.01 Total Protein Albumin Globulin Albumin/Globulin Ratio Triglycerides Procalcitonin 0.11 H Urine Color Urine Appearance Urine pH Ur Specific [place] Urine Protein Urine Glucose (UA) Urine Ketones Urine Occult Blood Urine Nitrate Urine Bilirubin Urine Urobilinogen Ur Leukocyte Esterase Ur Culture Indicated? 07/31/20 07/31/20 07/31/20 10:28 10:28 10:28 WBC RBC Hgb Hct POC Hct 45 MCV MCH MCHC RDW Plt Count MPV Neut % (Auto) Lymph % (Auto) [place] % (Auto) Eos % (Auto) Baso % (Auto) Lymph # (Auto) [place] # (Auto) Eos # (Auto) Baso # (Auto) Absolute Neutrophils PT INR APTT D-Dimer 2.06 H VBG Lactic Acid 0.8 POC Sodium 138 Sodium 139 POC Potassium 3.9 Potassium 4.0 POC Chloride 106 Chloride 103 Carbon Dioxide 22 POC Total CO2 22 Anion Gap 14.0 POC BUN 13 BUN 12 Creatinine 0.7 POC Creatinine 0.6 GFR Calculation 88 Glucose 126 H POC Glucose 128 H Uric Acid Calcium 9.2 POC WB Ioniz Calcium 1.16 Phosphorus Magnesium Total Bilirubin 0.6 Direct Bilirubin GGT AST 8 ALT 6 Alkaline Phosphatase 86 Lactate Dehydrogenase Troponin T Total Protein 6.8 Albumin 3.7 Globulin 3.1 Albumin/Globulin Ratio 1.2 Triglycerides Procalcitonin Urine Color Urine Appearance Urine pH Ur Specific [place] Urine Protein Urine Glucose (UA) Urine Ketones Urine Occult Blood Urine Nitrate Urine Bilirubin Urine Urobilinogen Ur Leukocyte Esterase Ur Culture Indicated? 07/31/20 10:28 WBC 15.7 H RBC 4.61 Hgb 14.9 Hct 44.0 POC Hct MCV 95.4 MCH 32.3 MCHC 33.9 RDW 13.5 Plt Count 269 MPV 8.4 Neut % (Auto) 84.1 H Lymph % (Auto) 7.0 L [place] % (Auto) 8.6 Eos % (Auto) 0.1 Baso % (Auto) 0.2 Lymph # (Auto) 1.09 L [place] # (Auto) 1.35 H Eos # (Auto) 0.01 Baso # (Auto) 0.03 Absolute Neutrophils 13.18 H PT INR APTT D-Dimer VBG Lactic Acid POC Sodium Sodium POC Potassium Potassium POC Chloride Chloride Carbon Dioxide POC Total CO2 Anion Gap POC BUN BUN Creatinine POC Creatinine GFR Calculation Glucose POC Glucose Uric Acid Calcium POC WB Ioniz Calcium Phosphorus Magnesium Total Bilirubin Direct Bilirubin GGT AST ALT Alkaline Phosphatase Lactate Dehydrogenase Troponin T Total Protein Albumin Globulin Albumin/Globulin Ratio Triglycerides Procalcitonin Urine Color Urine Appearance Urine pH Ur Specific [place] Urine Protein Urine Glucose (UA) Urine Ketones Urine Occult Blood Urine Nitrate Urine Bilirubin Urine Urobilinogen Ur Leukocyte Esterase Ur Culture Indicated? Preliminary micro results at discharge 08/01/20 00:14 Gram Stain - Preliminary Sputum - Induced Discharge Plan Patient/Caregiver Discharge Instructions Activity: increase activity as tolerated Diet: Regular Diet Instructions: Cefdinir (By mouth), Apixaban (By mouth), Pulmonary Embolism (GEN), How to Stop Smoking (GEN), Hypoxia (GEN) Activity Restrictions/Additional Instructions: A referral has been sent to see pulmonology in 1 to 2 weeks for COPD evaluation and pulmonary function testing. Recommend a follow-up with a CT in 6 months to follow-up on incidental 9 mm right lung apex nodule. This discharge packet is provided to you to help keep you informed about your care. We want to ensure you get everything you need when you go home. You will also be receiving a call from us in a few days to follow up with you and see how you are doing since your discharge. This gives us a chance to listen to any concerns you maybe experiencing since you were discharged or any additional needs you may have, as well as providing us feedback on your care experience. We strive to always provide excellent care and thank you for your feedback and for choosing [facility]. Prescriptions: New Eliquis 5 mg Tablet 10 mg PO BID Qty: 90 RF: 0 cefdinir 300 mg capsule 300 mg PO BID Qty: 10 RF: 0 Follow Up Plan Follow up with: Sandro Dow MD [Physician] - (A referral has been sent, they will contact you to schedule an appointment) Wayne Shah MD [Primary Care Provider] - 08/08/20 10:45 am (Please check in at 10:30 am) Patient Disposition: Home, Self-Care Prognosis: Fair Overall status at discharge: patient is progressing back to baseline Discharge Orders: Discharge Order (Routine); Ordered 08/02/20 Ordered By: Kwadwo Hitchcock [facility] V[facility] Deep Vein Thrombosis/Pulmonary Embolism Present on Admission: Yes
[2020-08-01] MEDS: APIXABAN 5 MG TABLET PO SCH (19:58)
[2020-08-01] MEDS: HEPARIN SOD,PORK IN 0.45% NACL 25,000 UNIT in PREMIX 1 BAG IV SCH (22:34)
[2020-08-02] MEDS: HYDROcodone/APAP 5/325MG TABLET PO PRN ×2 (01:47→07:32)
[2020-08-02] MEDS: 0.9 % SODIUM CHLORIDE 10 ML SYRINGE IV SCH (05:53)
[2020-08-02] MEDS: DOCUSATE SODIUM 100 MG CAPSULE PO SCH (08:42)
[2020-08-02] MEDS: FLUTICASONE/SALMETEROL 250/50 INHALER #14 INH SCH (08:50)
[2020-08-02] MEDS: APIXABAN 5 MG TABLET PO SCH (08:50)
[2020-08-02] MEDS: cefTRIAXone 2 GM in DEXTROSE 5% IN WATER 50 ML IV SCH (08:50)
[2020-08-02] MEDS: AZITHROMYCIN 500 MG in DEXTROSE 5% IN WATER 250 ML IV SCH (09:22)
[2020-08-02] MEDS: LIDOCAINE PATCH TOPICAL SCH (10:12)
== END 2020-08-02 11:00 | disposition home or self-care (01) | DRG 175 ==
LOC: ED 10:03 → ICU 14:48
PROVIDERS: ADMIT Internal Medicine; ATTEND Internal Medicine